=== PATIENT | female | born 1970 ===

== ENCOUNTER 2020-03-15 11:55 | Outpatient (REF) | payer MEDICAID, SELFPAY | END 2020-03-15 11:56 | disposition home or self-care (01) | LOC: HO.LAB 11:55 | PROVIDERS: PCP Internal Medicine Geriatric Medicine; Visit Provider Internal Medicine | DX: Z20.828 Contact with and (suspected) exposure to other viral communicable diseases (principal) | CPT/HCPCS: 87635 ==

== ENCOUNTER → 2020-03-16 14:19 | Outpatient (REF) | payer MEDICAID, SELFPAY | LOC: HO.SL 14:19 | PROVIDERS: PCP Internal Medicine Geriatric Medicine; Visit Provider Internal Medicine Geriatric Medicine | DX: R06.00 Dyspnea, unspecified (principal); R06.83 Snoring; R40.0 Somnolence | CPT/HCPCS: 95806 ==

== ENCOUNTER → 2020-04-10 11:02 | Outpatient (BNVA) | payer MEDICAID, SELFPAY | PROVIDERS: PCP Internal Medicine Geriatric Medicine; Referring Provider Internal Medicine Geriatric Medicine; Visit Provider Internal Medicine Cardiovascular Disease | DX: R07.89 Other chest pain (principal); I25.10 Atherosclerotic heart disease of native coronary artery without angina pectoris; I10 Essential (primary) hypertension; Z79.899 Other long term (current) drug therapy; Z95.5 Presence of coronary angioplasty implant and graft | CPT/HCPCS: 93005; 99202 ==

== ENCOUNTER → 2020-05-16 08:27 | Outpatient (REF) | payer MEDICAID, SELFPAY ==
--- NOTE | 2020-05-16 08:30 | CA_ITS ---
Acquisition Time: 2020-05-16 09:39:33 Total Exercise Time: 00:05:34 Test Indications: Chest Pain Medications: METOPROLOL LISINOPRIL Protocol: AMY Max HR: 146 BPM 85% of Pred: 170 BPM Max BP: 164/100 mmHG Max Work Load: 5.0 METS Exercise nuclear stress test using amy protocol. Second stage held. Incline increased manually. Pt exercised for total of 5 min 34 sec. METS 5.0, with MAPHR up to 85 %. Pt tolerated well. Denies any anginal sx. EKG without any arrhythmias, no ischemic changes suggestive of ischemia. Nuclear images to follow. Normotensive response to exercise. Test reviewed with Dr. Allen. Referred By: Carlos Grimes Overread By: Cristiane Byrnes
--- NOTE | 2020-05-16 08:37 | NM_ITS ---
Exercise Myocardial perfusion study Indication: Atherosclerotic heart disease to evaluate for myocardial ischemia Technique: The patient was brought in for an exercise perfusion study on 05/16/2020. Patient performed exercise as per Abiodun protocol and was injected 40 mCi of sestamibi was given intravenously one target HR was achieved. Images were obtained using the SPECT gamma camera interlaced with the gating device. Images were obtained in supine position. Resting perfusion study was performed on 05/17/2020. Patient was administered 40 mCi of sestamibi intravenously at rest. Images were then obtained in supine position. Images obtained with and without CT attenuation. Total DLP 128 mGy-cm. Images were processed with the software and compared side to side in short axis, horizontal long axis and vertical long axis views. Findings: The stress perfusion study showed non attenuated images show mildly reduced uptake in the basal septum and basal inferior wall of the LV myocardium. Remainder of the LV myocardium is normally perfused. Attenuation corrected images show mildly reduced uptake in the distal septum and apex of the LV myocardium.. The gated study shows normal LV systolic function with calculated LVEF of 58%. LV cavity is normal in size. The gated study shows normal systolic wall thickening and contraction of all segments. There is no transient ischemic dilation. Resting study shows no change in perfusion pattern compared to stress perfusion study. Gating at rest reveals normal systolic wall motion with ejection fraction at 63%. The findings are consistent with normal myocardial perfusion. NM/NM cardiolite stress test Impression: 1. Normal myocardial perfusion 2. Gated LVEF is 58% 3. Transient ischemic dilatation not present Stress EKG is negative for ischemia
== END ==
LOC: HO.CARD 08:27
PROVIDERS: Visit Provider Internal Medicine Cardiovascular Disease
DX: R07.89 Other chest pain (principal); I25.10 Atherosclerotic heart disease of native coronary artery without angina pectoris; Z95.5 Presence of coronary angioplasty implant and graft
CPT/HCPCS: 78452; 93017; A9500

== ENCOUNTER 2020-05-24 19:49 | Emergency (ER) | payer MEDICAID, SELFPAY ==
[2020-05-24 21:50] VITALS: BP 162/86; PULSE 83; RESP 16; TEMP 36.4; O2SAT 97; BMI 36.2
--- NOTE | 2020-05-24 22:56 | ECG_ITS ---
Test Reason : LOC Blood Pressure : / mmHG Vent. Rate : 072 BPM Atrial Rate : 072 BPM P-R Int : 164 ms QRS Dur : 092 ms QT Int : 412 ms P-R-T Axes : 030 007 030 degrees QTc Int : 451 ms Normal sinus rhythm Normal ECG When compared with ECG of 22-JUN-2017 19:04, No significant change was found Referred By: Aislinn Roper Electronically Signed By:Dave Sánchez
--- NOTE | 2020-05-24 22:56 | CT_ITS ---
EXAMINATION: CT HEAD WITHOUT CONTRAST CT CERVICAL SPINE WITHOUT CONTRAST CLINICAL INFORMATION: Fall. Loss of consciousness. COMPARISON: CT head 06/22/2017 TECHNIQUE: Imaging was performed from the skull base to vertex without intravenous administration of contrast. In addition, helical noncontrast CT imaging was acquired through the cervical spine and source images were reviewed along with axial reconstructions and sagittal and coronal MPRs. Coronal and sagittal reformatted images are performed at the CT scanner [This CT examination was performed using dose optimization techniques as appropriate, variously including the following: *Automated exposure control *Adjustment of mA and/or kV according to patient size (this includes techniques or standardized protocols for targeted exams where dose is matched to indication/reason for exam; i.e. extremities or head) *Use of iterative reconstruction technique] DLP: 1427 mGy-cm FINDINGS: HEAD: No intracranial mass, hemorrhage, or midline shift is visualized. The ventricles and sulci are age-appropriate. No extra-axial collections are identified. The paranasal sinuses and mastoid air cells are well aerated. CERVICAL SPINE: There is no evidence of acute cervical spine fracture. Vertebral bodies remain normal in height. Cervical vertebrae have normal alignment. There is mild multilevel degenerative spondylosis of the cervical spine. There are small vertebral endplates spurs at C4-C7 vertebrae. Cervical spine disc heights and the facet joints are normal. No pre- or paravertebral soft tissue abnormality is identified. Limited assessment of the lung apices is unremarkable. CT/CT cervical spine wo con IMPRESSION: 1. No acute intracranial pathology. 2. No CT evidence of acute cervical spine fracture or traumatic subluxation
--- NOTE | 2020-05-24 23:07 | ED_ITS ---
HPI - Fall General Chief Complaint: Head Injury Stated Complaint: fall Time Seen by Provider: 05/24/20 22:55 Source: patient Mode of arrival: ambulatory History of Present Illness HPI Narrative: This is a 49-year-old female with significant past medical history of hypertension, CAD, diabetes who states that at approximately 7:00 p.m. this evening she was walking in the kitchen stubbed her toe causing her to fall forward and despite landing with her hands on the counter she struck her head on the edge of the sink and states that she ?passed out?. But shortly woke up sitting on the floor with her back against the counter. She denies any recent fevers, chills, GI symptoms, or urinary symptoms. Related Data Home Medications Medication Instructions Recorded Confirmed lisinopril 30 mg tablet 30 mg PO DAILY 04/10/20 04/10/20 metoprolol succinate 50 mg 50 mg PO DAILY 04/10/20 04/10/20 tablet,extended release 24 hr Previous Rx's Medication Instructions Recorded aspirin 81 mg tablet,delayed 81 mg PO DAILY #30 tab 04/10/20 release atorvastatin 40 mg tablet 40 mg PO DAILY #30 tab 04/10/20 Allergies Allergy/AdvReac Type Severity Reaction Status Date / Time SEASONAL ALLERGIES Allergy Unknown UNKNOWN Uncoded 04/12/20 15:28 Review of Systems Review of Systems: Pertinent positive and negatives as stated in HPI and 10 point review of systems is otherwise negative. [facility] Past Medical History Source: nursing notes reviewed Medical History CAD (coronary artery disease) Diabetes HTN (hypertension) Hyperlipidemia Surgical History History of heart artery stent Stented coronary artery Family History Family History Father No problems noted. Mother Diabetes Hypertension Social History Social History Smoking Status: Never smoker Advance Directives: No Advance Directives Information Provided: No Physical Exam Vital Signs: Vital Signs: Last Vital Signs Temp 97.9 F 05/25/20 00:00 Pulse 71 05/25/20 00:00 Resp 18 05/25/20 00:00 BP 132/71 05/25/20 00:00 Pulse Ox 98 05/25/20 00:00 Body Mass Index 36.2 VITAL SIGNS: Reviewed. GENERAL: Well developed, well nourished, in no acute distress. HEAD: Normocephalic/contusion to left forehead without abrasion or laceration EYES: PERRLA, EOMI intact without pain NOSE: Nares patent bilateral OROPHARYNX: no oral lesions noted, posterior pharynx clear NECK: Supple, no adenopathy, mild right paraspinal discomfort on palpation LUNGS: Normal breath sounds. No adventitious sounds or accessory muscle use. SpO2<97> CARDIOVASCULAR: Regular rate and rhythm without noted murmurs, no JVD or lower extremity edema. ABDOMEN: Obese, Soft, non-tender, non-distended with bowel sounds. No rigidity. No guarding. No palpable masses or hernias noted RIGHT GREAT TOE: No erythema, laceration, edema, but mild discomfort on full range of motion at the MTP NEUROLOGIC: Alert and oriented x 4. Strength and sensation to light touch were grossly intact x 4, no pronator drift, cranial nerves 2-12 are grossly intact. Course Course Course Narrative: This is a 49-year-old female with history and clinical presentation most consistent with mechanical fall but will evaluate for any evidence of arrhythmia, infection, anemia given patient's multiple comorbidities as well as reported LOC. On review of all investigations there are no acute findings to suggest infection, anemia, arrhythmia and history is most consistent with a mechanical fall. All results and findings were discussed with the patient at bedside and she was discharged in stable condition with instructions to follow-up with her primary care provider. MDM - Fall Lab Data Result diagrams: 05/25/20 00:13 05/25/20 00:13 Labs: Lab Results 05/25/20 05/25/20 05/25/20 Range/Units 00:11 00:13 00:13 WBC 11.0 H (4.8-10.8) X10*3/uL RBC 4.83 (4.20-5.50) X10*6/uL Hgb 12.0 (12.0-16.0) g/dl Hct 38.9 (37-47) % MCV 80.5 (80-98) fL MCH 24.8 L (27.0-33.0) pg MCHC 30.8 L (31.0-35.0) g/dl RDW 14.7 (11.0-16.0) % Plt Count 363 (160-400) X10*3/uL MPV 10.2 (9.4-12.3) fL Immature Gran % (Auto) 0.5 H (0.0-0.4) % Neut % (Auto) 62.9 (45-73) % Lymph % (Auto) 27.2 (20-40) % [place] % (Auto) 6.3 (2-11) % Eos % (Auto) 2.6 (0-4) % Baso % (Auto) 0.5 (0-2) % Lymph # (Auto) 3.0 (1.2-4.9) X10*3/uL [place] # (Auto) 0.7 (0.1-1.2) X10*3/uL Eos # (Auto) 0.3 (0.0-0.4) X10*3/uL Baso # (Auto) 0.1 (0.0-0.2) X10*3/uL Abs Immat Gran (auto) 0.05 H (0.00-0.03) X10*3/uL Absolute Neuts (auto) 7.0 (2.0-8.3) X10*3/uL Absolute Nucleated RBC 0.000 (0.0-0.012) X10*3/uL Nucleated RBC % (auto) 0.0 (0.0-0.2) /100WBC Sodium 140 (135-145) mmol/L Potassium 4.1 (3.3-5.1) mmol/l Chloride 104 (96-108) mmol/L Carbon Dioxide 29 (22-29) mmol/L Anion Gap 11 L (12-20) BUN 12 (9-16) mg/dL Creatinine 0.95 (0.5-1.4) mg/dL Estim Creat Clear Calc 82.5 Estimated GFR > 60 Random Glucose 176 H (60-115) mg/dL Calcium 8.9 (8.4-10.2) mg/dL Total Bilirubin 0.4 (0.0-1.0) mg/dL AST 25 (5-31) U/L ALT 30 (0-31) U/L Alkaline Phosphatase 107 (39-117) U/L Total Protein 7.2 (6.5-8.0) g/dL Albumin 3.9 (3.5-5.0) g/dL Urine Color YELLOW Urine Appearance CLEAR Urine pH 7.0 (5.0-8.0) Ur Specific [place] 1.020 (1.005-1.025) Urine Protein NEG (NEG-TRACE) MG/DL Urine Glucose (UA) NEG (NEG) MG/DL Urine Ketones NEG (NEG) MG/DL Urine Blood NEG (NEG) Urine Nitrite NEG (NEG) Ur Leukocyte Esterase NEG (NEG) Discharge Plan Discharge Clinical Impression: Accident due to mechanical fall without injury Qualifiers: Encounter type: initial encounter Qualified Code(s): W19.XXXA - Unspecified fall, initial encounter Patient Disposition: Home, Self-Care Instructions: Fall Prevention for Older Adults (ED) Additional Instructions: 1. Resume all home medications as prescribed. 2. Recommend using neti-zen-palfbaf Tylenol and/or ibuprofen as needed for headache and pain control. 3. Apply ice to unexposed skin for 5-10 minutes as needed for additional pain relief. 4. Please do not hesitate to return to the emergency department if you notice any concerning symptoms such as speech changes, or arm/leg weakness. Please follow-up with your primary care provider. Prescriptions: No Action metoprolol succinate 50 mg tablet extended release 24 hr 50 mg PO DAILY RF: 0 lisinopril 30 mg tablet 30 mg PO DAILY RF: 0 aspirin [Ecotrin Low Strength] 81 mg tablet,delayed release (DR/EC) 81 mg PO DAILY Qty: 30 RF: 0 atorvastatin 40 mg tablet 40 mg PO DAILY Qty: 30 RF: 0 Referrals: [facility] [Primary Care Provider] - 2 days (Re-evaluation after mechanical fall resulting in head strike and LOC and negative workup in the emergency department.)
[2020-05-25] VITALS: BP 132/71; PULSE 71; RESP 18; TEMP 36.6; O2SAT 98
[2020-05-25 00:19] LABS: MANUAL DIFF FLAG NO
[2020-05-25 00:19] LABS: Glucose Urine UA NEG (NEG); Leukocyte Esterase Urine NEG (NEG); Nitrite Urine NEG (NEG); Urine Blood NEG (NEG); Urine Ketones NEG (NEG); Urine Protein NEG (NEG-TRACE)
[2020-05-25 00:20] LABS: Basophils Absolute Auto 0.1 X10*3/uL (0.0-0.2); Basophils Percent Auto 0.5 % (0-2); Eosinophils Absolute Auto 0.3 X10*3/uL (0.0-0.4); Eosinophils Percent Auto 2.6 % (0-4); Hematocrit 38.9 % (37-47); Imm Gran Abs Auto 0.05 X10*3/uL (0.00-0.03); Imm Gran Pct Auto 0.5 % (0.0-0.4); Lymphocytes Percent Auto 27.2 % (20-40); Mean Corpuscular HGB Conc 30.8 g/dl (31.0-35.0); Mean Corpuscular Hemoglobin 24.8 pg (27.0-33.0); Mean Corpuscular Volume 80.5 fL (80-98); Mean Platelet Volume 10.2 fL (9.4-12.3); Monocytes Absolute Auto 0.7 X10*3/uL (0.1-1.2); Monocytes Percent Auto 6.3 % (2-11); Neutrophils Percent Auto 62.9 % (45-73); Platelet Count 363 X10*3/uL (160-400); Red Blood Count 4.83 X10*6/uL (4.20-5.50); Red Cell Distribution Width 14.7 % (11.0-16.0)
[2020-05-25 00:21] LABS: Appearance Urine CLEAR; Color Urine YELLOW; UACC Culture Trigger NO
[2020-05-25 00:57] LABS: Alanine Aminotransferase 30 U/L (0-31); Albumin Level 3.9 g/dL (3.5-5.0); Alkaline Phosphatase 107 U/L (39-117); Anion Gap 11 (12-20); Aspartate Amino Transferase 25 U/L (5-31); Bilirubin Total 0.4 mg/dL (0.0-1.0); Blood Urea Nitrogen 12 mg/dL (9-16); Calcium 8.9 mg/dL (8.4-10.2); Carbon Dioxide 29 mmol/L (22-29); Chloride 104 mmol/L (96-108); Creatinine Clr Calc Pharmacy 82.5; Estimated Glomerular Filt Rate > 60; Glucose Random 176 mg/dL (60-115); Potassium 4.1 mmol/l (3.3-5.1); Sodium 140 mmol/L (135-145); Total Protein 7.2 g/dL (6.5-8.0)
[2020-05-25] MEDS: Acetaminophen 325 MG TABLET 975 MG PO (01:57)
== END 2020-05-25 02:17 | disposition home or self-care (01) ==
PROVIDERS: Emergency Provider Student in an Organized Health Care Education/Training Program
DX: S09.90XA Unspecified injury of head, initial encounter (principal); S99.922A Unspecified injury of left foot, initial encounter; S99.921A Unspecified injury of right foot, initial encounter; M54.2 Cervicalgia; Y29.XXXA Contact with blunt object, undetermined intent, initial encounter; Y93.01 Activity, walking, marching and hiking; Y92.000 Kitchen of unspecified non-institutional (private) residence as the place of occurrence of the external cause; Y99.9 Unspecified external cause status; Z79.899 Other long term (current) drug therapy
CPT/HCPCS: 36415; 70450; 72125; 80053; 81003; 85025; 93005; 99284

== ENCOUNTER → 2020-05-29 13:18 | Outpatient (BNVA) | payer MEDICAID, SELFPAY | PROVIDERS: PCP Internal Medicine Geriatric Medicine; Referring Provider Internal Medicine Geriatric Medicine; Visit Provider Internal Medicine Cardiovascular Disease | DX: I25.10 Atherosclerotic heart disease of native coronary artery without angina pectoris (principal); R07.89 Other chest pain | CPT/HCPCS: 99212 ==

== ENCOUNTER 2020-12-15 10:09 | Outpatient (REF) | payer MEDICAID, SELFPAY ==
--- NOTE | 2020-12-18 09:18 | MHC.AU.ANO ---
Adult Audiological Evaluation Date of Visit: 12/15/20 Reason for Appointment: Patient reports difficulty understanding others during conversation. She reports that the use of masks over the past year has made her realize how much she relied on lip reading. She feels the left ear is worse. Does patient feel they have a hearing loss?: Yes Has hearing been tested previously?: No Hearing Handicap Inventory: HHIE SCORE: 10 Based on HHIE score, patient has: Mild to moderate perceived hearing handicap Ear History: Ear Deformity: None Reported Recent Ear Drainage: None Reported Recent Ear Infections: None Reported History of Ear Wax Buildup: None Reported Previous Ear Surgery: None Reported Bothersome Tinnitus/Ringing/Noises in Ears: Both Ears Ear used on the phone: Left Ear Blocked/Full Sensation in Ear(s): None Reported History of occupational noise exposure?: No History: No Medical History: Medical History: Diabetes, Heart Problems, High Blood Pressure, Asthma Otoscopy: Right Ear: Unremarkable Left Ear: Unremarkable Tympanometry: Tympanometry performed due to: To assess integrity of the middle ear system Right Ear: Normal Middle Ear System (Type A) Left Ear: Hypercompliant Middle Ear System (Type Ad) Otoacoustic Emissions Frequency Range Used: 1.6-8 kHz Right Ear Results: Normal 1313-1226 Hz, Reduced 6827-8746 Hz, Absent 8160-8814 Hz Analysis: Reduced/Absent emissions suggest cochlear dysfunction Left Ear Results: Normal 6792-8884 Hz, Reduced/Absent 4978-1474 Hz Analysis: Reduced/Absent emissions suggest cochlear dysfunction Hearing Evaluation: Transducer(s) Used: Insert Earphones Method: Conventional Audiometry Stimuli Used: Pure Tones Right Ear: Description of Hearing: Normal from 250-1000 Hz, sloping to mild mixed hearing loss at 3013-1620 Hz, rising to normal through 8000 Hz Left Ear: Description of Hearing: Borderline-normal from 250-1500 Hz, sloping to mild mixed hearing loss from 4431-8604 Hz, rising to borderline-normal at 8000 Hz Speech Recognition Threshold (SRT): Method Used: Recorded Lists Stimuli Used: [place] Words Right Ear: 20 dBHL Left Ear: 25 dBHL Word Discrimination: Method: Recorded Lists Word Lists Used: W-22 Right Ear: 100% at 65 dBHL Left Ear: 100% at 65 dBHL Most Comfortable Level (MCL): Right Ear: 65 dBHL Left Ear: 65 dBHL Interpretation of Results: Asymmetry noted- left ear slightly worse at most frequencies Recommendations: Audiological re-evaluation in one year. Amplification is not warranted at this time. Referral to Ear, Nose, and Throat is recommended to address hearing asymmetry and hypercompliant left middle ear system. Diagnosis: Primary Diagnosis: H90.6 Mixed Hearing Loss, Bilateral Signature: Provider: Daenna Espinoza, SUKH-A
== END 2020-12-15 10:10 | disposition home or self-care (01) ==
LOC: HO.SH 10:09
PROVIDERS: Visit Provider Internal Medicine Geriatric Medicine
DX: H90.6 Mixed conductive and sensorineural hearing loss, bilateral (principal)
CPT/HCPCS: 92557; 92567; 92587

== ENCOUNTER 2021-10-09 14:48 | Outpatient (REF) | payer MEDICAID, SELFPAY ==
--- NOTE | ~2021-10-09 | MM_ITS ---
EXAMINATION: MM SCREENING DIGITAL BREAST TOMOSYNTHESIS, BILATERAL CLINICAL INFORMATION: Screening. Asymptomatic. The lifetime risk of breast cancer based on the Tyrer-Cuzick Model is 7%. COMPARISON: Mammography: 10/20/2015 TECHNIQUE: Digital breast tomosynthesis is performed in both the craniocaudal and mediolateral oblique views along with computer-aided detection (CAD). Synthesized 2D images are generated from the tomosynthesis. FINDINGS: There are scattered areas of fibroglandular density (ACR BI-RADS breast composition Category b). There are no significant masses, abnormal calcifications, or other abnormalities. Parenchymal pattern is similar to prior exam. The axilla are unremarkable. MM/MM tomosynthesis screening BI IMPRESSION: No mammographic evidence of malignancy. ASSESSMENT: BI-RADS 1: Negative RECOMMENDATION: Routine annual mammography screening. This patient's information was entered into a reminder system with a target due date for their next mammogram.
== END 2021-10-09 14:49 | disposition home or self-care (01) ==
LOC: HO.MAMMO 14:48
PROVIDERS: PCP Internal Medicine Geriatric Medicine; Visit Provider Internal Medicine Geriatric Medicine
DX: Z12.31 Encounter for screening mammogram for malignant neoplasm of breast (principal)
CPT/HCPCS: 77063; 77067

== ENCOUNTER 2022-07-01 07:06 | Emergency (ER) | payer MEDICAID, SELFPAY ==
[2022-07-01 07:11] VITALS: BP 135/78; PULSE 68; RESP 18; TEMP 36.5; O2SAT 97; BMI 36.8
--- NOTE | 2022-07-01 07:23 | ED.BACK ---
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 No trauma. started 4 days ago worse over past two days. No b/b incontinence, no saddle anesthesia, no IVDA. Tried a pain patch without relief. Patient notes pain is worse with movements and coughing. She has pain before but usually on left side. No fevers, abdominal pain, urinary symptoms. MD elicited complaint: back pain Pertinent past history: prior back pain Onset (ago): day(s) (4) Timing: constant Severity: moderate Similar Symptoms Previously: No Quality: dull, aching and spasming Location: lumbar spine Radiation: other (across back) Exacerbating factors: movement and walking Relieving factors: none Associated symptoms: denies other symptoms Treatments prior to arrival: other (pain patch) Work related injury: No Related Data Home Medications Medication Instructions Recorded Confirmed lisinopril 30 mg tablet 30 mg PO DAILY 04/10/20 04/10/20 metoprolol succinate 50 mg 50 mg PO DAILY 04/10/20 04/10/20 tablet,extended release 24 hr Previous Rx's Medication Instructions Recorded aspirin 81 mg tablet,delayed 81 mg PO DAILY #30 tabs 04/10/20 release (Ecotrin Low Strength) atorvastatin 40 mg tablet 40 mg PO DAILY #30 tabs 04/10/20 diazepam 5 mg tablet (Valium) 5 mg PO TID PRN muscle spasm #10 07/01/22 tabs lidocaine 5 % topical patch 1 patch topical DAILY #30 ea 07/01/22 Allergies Allergy/AdvReac Type Severity Reaction Status Date / Time SEASONAL ALLERGIES Allergy Unknown UNKNOWN Uncoded 07/01/22 07:19 Review of Systems Review of Systems: Constitutional : No Weight loss, No Fever, No Chills, ENT/Mouth : No Hearing loss, No Ear Pain, No Nasal Congestion, No Sinus Pain, No Hoarseness, No sore throat, No Rhinorrhea, No Swallowing Difficulty Cardiovascular : No Chest Pain, No SOB Respiratory : No Cough, No Dyspnea Gastrointestinal : No Nausea, No Vomiting, No Diarrhea, No abdominal Pain, No Hematochezia, No Melena Genitourinary : No Dysuria, No Urinary Frequency, No Hematuria, No Urinary Incontinence, Musculoskeletal : positive back pain Skin : No Skin Lesions, No rash Neuro : No Weakness, No Numbness, No Paresthesias, no loss of bowel or bladder incontinence, no saddle anesthesia [facility] Past Medical History Attestation statement: The following information was validated with the patient. Medical History CAD (coronary artery disease) Diabetes HTN (hypertension) Hyperlipidemia Surgical History History of heart artery stent Stented coronary artery Family History Family History Father No problems noted. Mother Diabetes Hypertension Social History Social History Alcohol intake: never Smoked in Last 30 Days: No Use of substances other than those prescribed or required for medical reasons: No Advance Directives: No Advance Directives Information Provided: Yes Patient : No Physical Exam Vital Signs: Vital Signs: Last Vital Signs Temp 97.7 F 07/01/22 07:11 Pulse 68 07/01/22 07:11 Resp 18 07/01/22 07:11 BP 135/78 07/01/22 07:11 Pulse Ox 97 07/01/22 07:11 O2 Del Method 07/01/22 07:11 BMI result Body Mass Index 36.8 Appearance: Alert. Oriented X3. No acute distress. Eyes: Pupils equal, round and reactive to light. ENT: Pharynx normal. Neck: Normal inspection. Neck supple. CVS: Normal heart rate and rhythm. Pulses normal. Respiratory: No respiratory distress. Breath sounds normal. Abdomen: Soft and nontender. Back: ttp along R paraspinal lumbar area that reproduces pain, hurts move up and down in bed Skin: Skin warm and dry. Normal skin color. Normal skin turgor. Extremities: No lower extremity edema. No calf ttp Neuro: Oriented X 3. No motor deficit. No sensory deficit. SILT inner thigh, L5 5/5 bilaterally, 2+ DTRs in patella bilaterally Medical Decision Making Medical Decision Making MDM Narrative: 51 yo female with PMH of CAD, DM, HTN, HLD not on blood thinners here with low back pain without b/b incontinence/saddle anesthesia. Pain is reproduceable. She is NV intact, pain is there on palpation and movement likely MSK - no red flags abdomen is benign at this time. Suspect lumbar spasm will treat with tylenol and valium. Stable for DC at this time. No IVDA, fevers, belly pain, urinary symptoms. Differential Diagnosis Differential Diagnoses: The differential diagnosis associated with the presentation includes lumbar strain, disc herniation, Independent Historian Clinical information obtained from an independent historian. History obtained from or confirmed by: Spouse External Record Review External record reviewed: Office record Prescription Management I considered prescription management with: Other (valium - muscle relaxer) Discharge Plan Discharge Clinical Impression: Lumbar paraspinal muscle spasm Patient Disposition: Home, Self-Care Instructions: Muscle Spasm (ED), Back Pain (ED) Additional Instructions: return to ED for any worsening symptoms or concerns return for numbness, weakness, loss of control of bowel or bladder, if pain does not improve in 3 days talk to your doctor about physical therapy. you can apply ice or heat to the area for comfort as well. take tylenol 650mg every 6 hours for pain do not exceed more than 4 grams in a day limit lifting to 10lbs for 2 weeks Prescriptions: New lidocaine 5 % adhesive patch,medicated 1 patch topical DAILY Qty: 30 0RF Rx Instructions: leave on most painful area for up to 12 hrs diazepam [Valium] 5 mg tablet 5 mg PO TID PRN (Reason: muscle spasm) Qty: 10 0RF Rx Instructions: partial fill is okay No Action metoprolol succinate 50 mg tablet extended release 24 hr 50 mg PO DAILY lisinopril 30 mg tablet 30 mg PO DAILY aspirin [Ecotrin Low Strength] 81 mg tablet,delayed release (DR/EC) 81 mg PO DAILY Qty: 30 0RF atorvastatin 40 mg tablet 40 mg PO DAILY Qty: 30 0RF Referrals: Rashad De La Cruz MD [Primary Care Provider] - (follow up in 3 days if not better)
[2022-07-01 07:37] LABS: Appearance Urine Clear; Color Urine Yellow; Glucose Urine UA >=1000 mg/dL (Negative); Leukocyte Esterase Urine Negative (Negative); Nitrite Urine Negative (Negative); PH 5.5 (5.0-9.0); Specific Gravity - Urine >= 1.030 (1.005-1.025); UMIC TRIGGER UACC YES; Urine Blood Negative (Negative); Urine Ketones Negative (Negative); Urine Protein Negative (Neg-Trace)
[2022-07-01] MEDS: Acetaminophen 325 MG TABLET 650 MG PO (07:56)
[2022-07-01] MEDS: diazePAM 2 MG TABLET 5 MG PO (07:56)
[2022-07-01 08:40] LABS: Bacteria Urine None Seen (None Seen); Hyaline Casts Urine 0-2 /LPF (0-2); RBC Urine 0-2 /HPF (0-2); Squamous Epithelial Cell Urine 0-2 /HPF (0-2); WBC Urine 0-5 /HPF (0-5)
== END 2022-07-01 08:07 | disposition home or self-care (01) ==
PROVIDERS: Emergency Provider Emergency Medicine; PCP Internal Medicine Geriatric Medicine
DX: M62.830 Muscle spasm of back (principal); M54.50 Low back pain, unspecified; E11.9 Type 2 diabetes mellitus without complications; I10 Essential (primary) hypertension; E78.5 Hyperlipidemia, unspecified; Z79.899 Other long term (current) drug therapy; Z79.02 Long term (current) use of antithrombotics/antiplatelets
CPT/HCPCS: 81001; 99283; 99284

== ENCOUNTER 2022-07-23 15:00 | Outpatient (RCR) | payer MEDICAID, SELFPAY ==
[2022-06-24 15:01] VITALS: BP 168/93; PULSE 84
== END 2022-08-13 14:23 | disposition home or self-care (01) ==
LOC: HO.PT 15:00
PROVIDERS: PCP Internal Medicine Geriatric Medicine; Visit Provider Registered Nurse
DX: M25.511 Pain in right shoulder (principal)
CPT/HCPCS: 97110; 97140; 97161

== ENCOUNTER 2022-11-29 17:52 | Outpatient (REF) | payer MEDICAID, SELFPAY | END 2022-11-29 17:53 | disposition home or self-care (01) | LOC: HO.HHCLNP 17:52 | PROVIDERS: Visit Provider Emergency Medicine | DX: Z13.89 Encounter for screening for other disorder (principal) | CPT/HCPCS: 87480; 87510; 87660 ==

== ENCOUNTER 2022-12-10 17:57 | Outpatient (REF) | payer OTHER, SELFPAY ==
[2022-12-11 11:32] LABS: CT PCR NOT DETECTED (Not Detect.); NG PCR NOT DETECTED (Not Detect.)
[2022-12-11 14:54] LABS: BV Int Neg Control Negative (Negative); BV Int Pos Control Positive (Positive)
== END 2022-12-10 17:58 | disposition home or self-care (01) ==
LOC: HO.HHCLNP 17:57
PROVIDERS: Visit Provider Registered Nurse
DX: N89.8 Other specified noninflammatory disorders of vagina (principal)
CPT/HCPCS: 0353U; 87480; 87510; 87660

== ENCOUNTER 2023-09-09 09:15 | Outpatient (REF) | payer SELFPAY ==
[2023-09-09 12:07] LABS: Estimated Average Glucose 309 mg/dL; Hemoglobin A1c % 12.4 % (<6.0)
[2023-09-09 12:16] LABS: Creatinine Urine 129.79 mg/dL; Microalbum/Creatinine Ratio Ur 20.8 ug/mg cr (<30)
[2023-09-09 12:41] LABS: Alanine Aminotransferase 26 U/L (0-31); Albumin Level 3.9 g/dL (3.5-5.0); Alkaline Phosphatase 140 U/L (39-117); Anion Gap 10 (12-20); Aspartate Amino Transferase 23 U/L (5-31); Bilirubin Total 0.4 mg/dL (0.0-1.0); Blood Urea Nitrogen 9 mg/dL (9-16); Calcium 9.3 mg/dL (8.4-10.2); Carbon Dioxide 29 mmol/L (22-29); Chloride 103 mmol/L (96-108); Cholesterol 207 mg/dL (<200); Estimated Glomerular Filt Rate > 60; Glucose Random 287 mg/dL (60-115); HDL Cholesterol 44 mg/dL (>40); LDL Cholesterol Calculated 136 mg/dL (<100); Potassium 3.8 mmol/L (3.3-5.1); Sodium 138 mmol/L (135-145); Total Protein 7.8 g/dL (6.5-8.0); Triglycerides 139 mg/dL (<150)
== END 2023-09-09 09:16 | disposition home or self-care (01) ==
LOC: HO.HHCL 09:15
PROVIDERS: Visit Provider Internal Medicine Geriatric Medicine
DX: E11.65 Type 2 diabetes mellitus with hyperglycemia (principal); R73.09 Other abnormal glucose; F40.298 Other specified phobia
CPT/HCPCS: 36415; 80053; 80061; 82043; 82570; 83036

== ENCOUNTER 2023-09-11 18:34 | Outpatient (REF) | payer SELFPAY ==
[2023-09-14 13:29] LABS: C. trachomatis RNA TMA NOT DETECTED (NOT DETECTED); Candida glabrata RNA NOT DETECTED (NOT DETECTED); Candida species RNA DETECTED (NOT DETECTED); N. gonorrhoeae RNA TMA NOT DETECTED (NOT DETECTED); Trichomonas vaginalis RNA NOT DETECTED (NOT DETECTED)
== END 2023-09-11 18:35 | disposition home or self-care (01) ==
LOC: HO.HHCLNP 18:34
PROVIDERS: Visit Provider Pediatrics
DX: N76.0 Acute vaginitis (principal)
CPT/HCPCS: 36415; 81513; 87481; 87491; 87591; 87661

== ENCOUNTER 2023-12-02 09:29 | Outpatient (REF) | payer OTHER, SELFPAY ==
--- NOTE | 2023-12-02 09:32 | EMG_ITS ---
Bilateral tibial and peroneal motor studies were performed bilateral superficial peroneal, sural, median, and lateral plantar mixed sensory studies were performed. Tibial H reflexes were obtained, and paraspinal muscles were tested with a needle. 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 MD ALEXANDER Roberto/WESLEY / [phone]
== END 2023-12-02 09:30 | disposition home or self-care (01) ==
LOC: HO.NEURO 09:29
PROVIDERS: PCP Internal Medicine Geriatric Medicine; Visit Provider Internal Medicine Geriatric Medicine
DX: M79.604 Pain in right leg (principal); M79.605 Pain in left leg
CPT/HCPCS: 95886; 95913

== ENCOUNTER 2024-03-18 13:04 | Outpatient (AMB) | payer OTHER, SELFPAY ==
--- NOTE | 2024-03-18 13:13 | MHC.OFFVIS ---
Vital Signs 03/18/24 13:18 Height 5 ft 5 in Weight 215 lb BMI 35.8 BP 183/86 H Blood Pressure Location Lt brachial Position Sitting Pulse 87 Intake Visit Reasons: Abscess left breast Intake Note: Patient is seen in office for evaluation and treatment of an abscess of the left breast. Pt c/o:onset 2 wks ago, started to driain last night whitish discharge, lower part of the breast, antbx for the past week, redness, denies prior breast infections or concerns mm sched: 04/09/24 Court Supervisor Required: No Accompanied by: Self / Same As Patient Allergies SEASONAL ALLERGIES Allergy (Unknown, Uncoded 03/18/24 13:15) UNKNOWN Medication List - Last Reconciled 03/18/24 by Terence Mckenzie MD aspirin (Ecotrin Low Strength) 81 mg PO DAILY atorvastatin 40 mg PO DAILY lidocaine 5% 1 patch topical DAILY lisinopril 30 mg PO DAILY metoprolol succinate ER 50 mg PO DAILY HPI Comments Details: 53-year-old female patient presenting for evaluation of an abscess below the left breast which was 1st noted a least 2 weeks ago. Prior to the infection she did feel a nodule in the skin for several years which was asymptomatic. This gradually enlarged and then became infected 2-3 weeks ago. She was evaluated by her PMD and subsequently started on oral antibiotics (doxycycline). She reports the lesion began to drain yesterday for the 1st time. She reports that the lesion has decreased in size in his less painful today. She denies fever, chills, nausea or vomiting. He denies a previous history of breast problems or breast surgery. Family history is negative for breast cancer. Her last mammogram performed on 10/09/2021 revealed no mammographic evidence of malignancy (BI-RADS 1). She is scheduled for a follow-up mammogram on 04/09/2024. Her [facility] remaining lifetime risk of breast cancer was calculated at 7% at that time. [facility] Medical History Left breast abscess Diabetes Hyperlipidemia HTN (hypertension) CAD (coronary artery disease) Surgical History Stented coronary artery History of heart artery stent Family History Father No problems noted. Mother Diabetes Hypertension Social History Alcohol intake: never Female Reproductive History Menstrual Age of Menarche: 13 Age of menopause: 46 Total pregnancies: 5 Number of Living Children: 5 Review of Systems Const All systems reviewed & are unremarkable except as noted in HPI and below Physical Exam Vital Signs: Last Vital Signs Pulse 87 03/18/24 13:18 BP 183/86 H 03/18/24 13:18 BMI result Body Mass Index 35.8 Const General: cooperative and no acute distress Nutritional Appearance: well nourished Orientation/consciousness: patient oriented x3 Limitations: no limitations HEENT Head: Yes normocephalic and Yes atraumatic Ears: hearing grossly normal bilaterally Chest Other: Epidermal inclusion cyst abscess located in the midclavicular line below the inframammary crease of the left breast with an area of cellulitis measuring a proximally 3 cm in diameter. A central punctum is open and draining purulent fluid. This was cleansed and packed with quarter-inch Nu Gauze. Dry sterile dressings were then applied. Chest/axillae images: 1. Site of skin abscess left chest wall. Resp Effort & Inspection: normal respiratory effort, no audible wheezes, no cough and no respiratory distress Cardio Jugular venous distension: no JVD GI Inspection: Yes normal to inspection Skin Other: Warm, dry, no rash; see chest above-knee Neuro General: patient oriented x3 Extrem General: Yes no clubbing, cyanosis or edema Assessment & Plan Assessment & Plan (1) Left breast abscess: Code(s): N61.1 - Abscess of the breast and nipple Category: Medical Plan 53-year-old female patient presenting with a probable epidermal inclusion cyst of the left chest wall just below the breast in the midclavicular line. This spontaneously opened yesterday and is draining purulent fluid. The wound was packed with Nu Gauze and covered with dry sterile dressings. No incision and drainage is required at this time. I recommended she shower and change the dressings daily. She should continue the antibiotics until completed. I have asked her to return to the office in 1 week. Once the infection has settled an excision of the epidermal inclusion cyst would be advisable. Coding Level of Care Code New Pt Level 4 (00019) Diagnoses Left breast abscess N61.1
[2024-03-18 13:18] VITALS: BP 183/86; PULSE 87; BMI 35.8
== END 2024-03-18 13:30 | disposition home or self-care (01) ==
LOC: HO.HGS 13:04
PROVIDERS: PCP Internal Medicine Geriatric Medicine; Visit Provider Surgery
DX: N61.1 Abscess of the breast and nipple (principal)
CPT/HCPCS: 99204

== ENCOUNTER → 2024-03-18 13:04 | Outpatient (BNVA) | payer OTHER, SELFPAY | PROVIDERS: PCP Internal Medicine Geriatric Medicine; Visit Provider Surgery ==

== ENCOUNTER 2024-03-25 13:46 | Outpatient (AMB) | payer OTHER, SELFPAY ==
--- NOTE | 2024-03-25 13:48 | MHC.OFFVIS ---
Vital Signs 03/25/24 13:54 Height 5 ft 5 in Weight 216 lb BMI 35.9 BP 158/80 H Blood Pressure Location Lt brachial Position Sitting Pulse 73 Intake Visit Reasons: 1 wk follow up Abscess left breast Intake Note: Patient is seen in office for one week follow up visit, left breast abscess. Pt c/o: continued discharge, less than last visit, states is looking better Property [employer] Casualty Insurance Agent Required: No Sound Truck Operator: Sound Truck Operator Present Accompanied by: Self / Same As Patient Allergies SEASONAL ALLERGIES Allergy (Unknown, Uncoded 03/25/24 13:53) UNKNOWN Medication List - Last Reconciled 03/25/24 by Terence Mckenzie MD aspirin (Ecotrin Low Strength) 81 mg PO DAILY atorvastatin 40 mg PO DAILY lidocaine 5% 1 patch topical DAILY lisinopril 30 mg PO DAILY metoprolol succinate ER 50 mg PO DAILY HPI Comments Details: 53-year-old female patient returning for follow-up evaluation after developing an abscess below the left breast. She was previously evaluated 1 week ago and found to have an open draining wound. This was packed with Nu Gauze and the patient started on antibiotics. Prior to the infection she did feel a nodule in the skin for several years which was asymptomatic. This gradually enlarged and then became infected 3 weeks ago. She was evaluated by her PMD and subsequently started on oral antibiotics (doxycycline). She denies fever, chills, nausea or vomiting. She denies a previous history of breast problems or breast surgery. Family history is negative for breast cancer. Her last mammogram performed on 10/09/2021 revealed no mammographic evidence of malignancy (BI-RADS 1). She is scheduled for a follow-up mammogram on 04/09/2024. Her [facility] remaining lifetime risk of breast cancer was calculated at 7% at that time. Since her last visit she reports less pain associated with the lesion but she continues to no discharge. She feels it has gotten smaller as well. [facility] Medical History Left breast abscess Diabetes Hyperlipidemia HTN (hypertension) CAD (coronary artery disease) Surgical History Stented coronary artery History of heart artery stent Family History Father No problems noted. Mother Diabetes Hypertension Social History Alcohol intake: never Female Reproductive History Menstrual Age of Menarche: 13 Review of Systems Const All systems reviewed & are unremarkable except as noted in HPI and below Physical Exam Vital Signs: Last Vital Signs Pulse 73 03/25/24 13:54 BP 158/80 H 03/25/24 13:54 BMI result Body Mass Index 35.9 Const General: cooperative and no acute distress Nutritional Appearance: well nourished Orientation/consciousness: patient oriented x3 Limitations: no limitations HEENT Head: Yes normocephalic and Yes atraumatic Ears: hearing grossly normal bilaterally Chest Other: Epidermal inclusion cyst abscess located in the midclavicular line below the inframammary crease of the left breast with an area of cellulitis measuring a proximally 1.5 cm in diameter. A central punctum is still open and draining purulent fluid. Dry sterile dressings were then applied. Chest/axillae images: 1. Site of draining cyst. Resp Effort & Inspection: normal respiratory effort, no audible wheezes, no cough and no respiratory distress Cardio Jugular venous distension: no JVD GI Inspection: Yes normal to inspection Skin Other: Warm, dry, no rash; see chest above-knee Neuro General: patient oriented x3 Extrem General: Yes no clubbing, cyanosis or edema Assessment & Plan Assessment & Plan (1) Left breast abscess: Code(s): N61.1 - Abscess of the breast and nipple Category: Medical Plan 53-year-old female patient returning for wound week follow-up evaluation of an infected epidermal inclusion cyst of the left chest wall below the left breast in the midclavicular line. The lesion continues to be open and draining. Overall it appears improve by think she would benefit from a longer course of antibiotics. Once the redness has improved, I would recommend excision of the original cyst. Patient expressed understanding and agrees with the plan. She will follow-up in approximately 2 weeks. Medications: New doxycycline hyclate 100 mg PO BID 30 tabs 0RF Coding Level of Care Code Est Pt Level 3 (72632) Diagnoses Left breast abscess N61.1
[2024-03-25 13:54] VITALS: BP 158/80; PULSE 73; BMI 35.9
== END 2024-03-25 14:05 | disposition home or self-care (01) ==
PROVIDERS: PCP Internal Medicine Geriatric Medicine; Visit Provider Surgery
DX: N61.1 Abscess of the breast and nipple (principal)
CPT/HCPCS: 99213

== ENCOUNTER 2024-04-09 14:17 | Outpatient (REF) | payer OTHER, SELFPAY ==
--- NOTE | ~2024-04-09 | MM_ITS ---
EXAMINATION: MM SCREENING DIGITAL BREAST TOMOSYNTHESIS, BILATERAL CLINICAL INFORMATION: Screening. Asymptomatic. COMPARISON: Mammography: Comparison is made with available priors TECHNIQUE: Digital breast mammography with tomosynthesis is performed in both the craniocaudal and mediolateral oblique views along with computer-aided detection (CAD). FINDINGS: There are scattered areas of fibroglandular density (ACR BI-RADS breast composition Category b). There are no significant masses, abnormal calcifications, or other abnormalities. MM/MM tomosynthesis screening BI IMPRESSION: No mammographic evidence of malignancy. ASSESSMENT: BI-RADS BI-RADS 1 - Negative RECOMMENDATION: Routine annual mammography screening. 1 year F/U This examination should not preclude the clinical evaluation of a suspicious palpable abnormality. This patient's information was entered into a reminder system with a target due date for their next mammogram. Electronically signed by: Samantha Zurita DO 04/20/2024 02:21 PM ANDREW
== END 2024-04-09 14:18 | disposition home or self-care (01) ==
LOC: HO.MAMMO 14:17
PROVIDERS: PCP Internal Medicine Geriatric Medicine; Visit Provider Family Medicine
DX: Z12.31 Encounter for screening mammogram for malignant neoplasm of breast (principal)
CPT/HCPCS: 77063; 77067

== ENCOUNTER → 2024-04-09 14:30 | Outpatient (BNV) | payer OTHER, SELFPAY | PROVIDERS: PCP Internal Medicine Geriatric Medicine; Visit Provider Internal Medicine | DX: Z12.31 Encounter for screening mammogram for malignant neoplasm of breast (principal) | CPT/HCPCS: 77063; 77067 ==

== ENCOUNTER 2024-04-22 14:10 | Outpatient (AMB) | payer OTHER, SELFPAY ==
--- NOTE | 2024-04-22 14:17 | A.OFFVIS_ITS ---
Vital Signs 04/22/24 14:19 Height 5 ft 5 in Weight 211 lb 6 oz BMI 35.2 BP 190/100 H Blood Pressure Location Lt brachial Position Sitting Pulse 115 H Intake Visit Reasons: follow up abscess of the left breast Intake Note: Patient is seen in office for one month follow up visit, following abscess of the left breast. Pt c/o: had discharge first couple of days, and is currently looking well, has no concerns Freight Dispatcher Required: No Accompanied by: Self / Same As Patient Allergies SEASONAL ALLERGIES Allergy (Unknown, Uncoded 03/25/24 13:53) UNKNOWN HPI Comments Details: 53-year-old female returning for follow-up examination of a previously infected sebaceous cyst below the left breast. She currently feels well denies any further pain, redness or discharge. She feels much improved. [facility] Medical History Left breast abscess Diabetes Hyperlipidemia HTN (hypertension) CAD (coronary artery disease) Surgical History Stented coronary artery History of heart artery stent Family History Father No problems noted. Mother Diabetes Hypertension Social History Alcohol intake: never Female Reproductive History Menstrual Age of Menarche: 13 Physical Exam Const General: comfortable Nutritional Appearance: well nourished Orientation/consciousness: patient oriented x3 Chest Other: Previous drainage site is now well healed with no palpable cyst appreciated. No discharge could be expressed with light pressure. Lesion is nontender to palpation. Neuro General: patient oriented x3 Extrem Other: No edema Assessment & Plan Assessment & Plan (1) Left breast abscess: Code(s): N61.1 - Abscess of the breast and nipple Category: Medical Plan 53-year-old female patient status post spontaneous drainage of an abscess below the left breast now completely resolved. No palpable cyst remains in the wound is completely healed. I recommended observation at this time; she should call should the cyst return. Coding Level of Care Code Est Pt Level 3 (29057) Diagnoses Left breast abscess N61.1
[2024-04-22 14:19] VITALS: BP 190/100; PULSE 115; BMI 35.2
== END 2024-04-22 14:24 | disposition home or self-care (01) ==
PROVIDERS: PCP Internal Medicine Geriatric Medicine; Visit Provider Surgery
DX: N61.1 Abscess of the breast and nipple (principal)
CPT/HCPCS: 99213

== ENCOUNTER → 2024-04-22 14:10 | Outpatient (BNVA) | payer OTHER, SELFPAY | PROVIDERS: PCP Internal Medicine Geriatric Medicine; Visit Provider Surgery ==

== ENCOUNTER 2024-07-13 08:37 | Outpatient (REF) | payer OTHER, SELFPAY ==
--- OUTSIDE RECORDS SUMMARY | 2024-07-13 09:07 | XMS_ITS | Encounter Summary ---
Author Organization [employer] Address [address] [facility] [facility] [address] [place] [address] Care Team Providers Care Bedspread Cutter Hand Name Role Phone Name, Rashad JAFFE Primary Care Provider [phone] Encounter Details Date Type Department Care Team (Latest Contact Info) Description 06/28/2024 Travel Social History Tobacco Use Types Packs/Day Years Used Date Smoking Tobacco: Never Passive Smoke Exposure: Never Smokeless Tobacco: Never Alcohol Use Standard Drinks/Week Comments Never 0 (1 standard drink = 0.6 oz pur e alcohol) Alcohol Answer Date Recorded Frequency of Alcohol Consumption Not on file 11/12/2023 Average Number of Drinks Not on file 024 Frequency of Binge Drinking Not on file 10/18 Score 0 11/12/2023 Depression Answer Date Recorded Patient Health Questionnaire-9 Score 0 12/13/2022 Housing Stability Answer Date Recorded What is your housing situation today? I have altheaolivia gonzáles 06/10/[address] you li ve. Do you have problems with any of the following? None of the above 06/10/2024 Food Insecurity Answer Date Recorded Within the past 12 months, y ou worried that your food would run out before you got money to buy more: Never True 06/10/2024 Within the past 12 months,th e food you bought just didn't last and you didn't have enough money to get more: Never True Transportation Answer Date Recorded In the past 12 months, has l ack of transportation kept you from medical appts, meetings, work or from getting things needed for daily living? No 06/10/2024 Utilities Answer Date Recorded In the past 12 months, has t he [employer], gas, oil or water [employer] threatened to shut off services in your home? No 06/10/2024 Depression Answer Date Recorded Patient Health Questionnaire-2 Score 0 12/13/2022 Internet Access Answer Date Recorded Internet Access Q1 Yes 06/10/2024 Internet Access Q2 Not on file 06/10/2024 Comments Unknown Sex and Gender Information Value Date Recorded Sex Assigned at Female 03/18/2022 10:14 AM EDT Legal Sex Female 10:14 AM EDT Gender Identity Female 03/18/2022 10:14 AM EDT Sexual Orientation Straight 03/18/2022 10 :14 AM EDT documented as of this encounter Plan of Treatment Upcoming Encounters Date Type Department Care Team (Late st Contact Info) Description 07/26/2024 2:00 PM EDT Clinical Support [facility] MEDICINE [address] [place] [address] 09/13/2024 2:00 PM EDT Office Visit [facility] OPTOMETRY [address] [place] [address] Michael, April, OD [address] [place] [address] documented as of this encounter Goals Goal Patient Goal Type Associated Problems Recent Progress Patient-Stated? Author Blood Pressure < 140/90 Blood Pressure 154/96(2024 1:45 PM EST) No Tiana Hill, PharmD Note: Achieve goal BP of < 140/90 mmHg over the next 6 months. Record your blood pressure once per day Blood Pressure No Tiana Hill, PharmD Note: SMBP daily and record values for review in follow up Hemoglobin A1c < 7 Result Component 13.6(06/21/19 1:57 PM EST) No Tiana Hill, PharmD Note: Achieve goal A1c of <7% over the next 6 months documented as of this encounter Visit Diagnoses Not on filedocumented in this encounter Additional Health Concerns Assessment Noted Time PHQ-9 Depression Total Score: 0 12/14/19 11:13 AM EDT documented as of this encounter Care Teams Bedspread Cutter Hand Relationship Specialty Start Date End Date Name, MD Rashad [address] [place] [address] PCP - General Family Medicine 01/30/18 documented as of this encounter
--- OUTSIDE RECORDS SUMMARY | 2024-07-13 09:07 | XMS_ITS | Encounter Summary ---
Author Organization [employer] Address [address] [place] [address] [address] [place] [address] Care Team Providers Care Scientific Manager Name Role Phone Name, Rashad JAFFE Primary Care Provider [phone] Reason for Visit * Reason Comments Blood Pressure Check Encounter Details Date Type Department Care Team (Latest Contact Info) Description 06/28/2024 1:30 PM EST Clinical Support [facility] MEDICINE [address] [place], [place] [id number] Opal Montalvo RN Hypertension, unspecified type [I10] Social History Tobacco Use Types Packs/Day Years [...] is your housing situation today? I have althea gonzáles 06/10/[address] you [...] the past 12 months, has t he electric, gas, oil or water company threatened to shut off services in your [...] AM EDT documented as of this encounter Last Filed Vital Signs Vital Sign Reading Time Taken Comments Blood Pressure 154/96 06/28/2024 1:45 PM EST Pulse 88 06/28/2024 1:45 PM EST Temperature 37.4 ??C (99.3 ??F) 06/28/2024 1:44 PM ES T Respiratory Rate 16 06/28/2024 1:44 PM EST Oxygen Saturation 97% 06/28/2024 1:44 PM EST Inhaled Oxygen Concentration - - Weight 96.3 kg (212 lb 6.4 oz) 06/28/2024 1:44 P M EST Height - - Body Mass Index 35.35 03/09/2024 1:54 PM EDT documented in this encounter Progress Notes * Opal Montalvo RN - 06/28/2024 1:30 PM EST S: Pt arrived to blue team for BP check nurse visit. At last ov on 06/21/24 BP noted 152/96 and recommendations made on that day by PCP were I recommended the patient to please use her medications. We discussed again the consequences of uncontrolled diabetes and hypertension. I sent refills of her medications to her pharmacy. She is recommended evaluation with fasting blood work listed below. I asked her to start checking her blood pressure at home daily. I will ask that she gets visit with team nurses for blood pressure recheck next week. Pt denies, cp, sob, headaches, blurry vision, lightheadedness, dizziness smoking or drinking alcohol. Pt denies checking their BP daily and reports theyhave not picked up their BP monitor. Pt reports they wake up at 4 am to get ready for work and taketheir medications around 9 am on their lunch break. Pt reports they eat fried chicken white rice atleast 3-4x a week. Pt reports they don't eat a lot of fruits and vegetables. Pt reports sometimes they'll have mangos and avocados. Pt reports taking their Metoprolol this morning but denies taking Ch lorthalidone and Lisinopril. Tc to [facility] pharmacy who reports pt has never picked up their medications ordered on 06/21/24. O: Pt rx metoprolol succinate XL (Toprol-XL) 50 MG 24 hr tablet (Take 1 tablet (50 mg) by mouth in the morning), chlorthalidone (Hygroton) 25 MG tablet (Take 1 tablet (25 mg) by mouth in the morning.), lisinopril 30 MG tablet (Take 1 tablet (30 mg) by mouth in the morning.) A: Pt is alert, answer es questions appropriately and does not need an motor vehicle parts interpreter. Pt is not compliant of BP regimen but reports taking their BP medication and taking it as prescribed. Pt is not at goal of BP <140/90 and lifestyle modifications implemented during the visit. P: Pt advised to go to [facility] pharmacy to pick up man their medications ordered on 06/21/24 and take them asprescribed. Pt provided with BP log, advised to pick up man their monitor, check their BP daily and document their readings up until their next appointment with the provider. Pt advised to increase intakes of fruits and vegetables and follow a low sodium diet. Pt advised to avoid intake of white refinecarbs and fried processed foods. Pt advised to eat brown rice and whole grain options instead, increase intake of baked chicken and fish. Pt informed message will be forwarded to PCP and we'll call back with updates. Pt verbalized understanding and message forwarded to PCP for review. . documented in this encounter Plan of Treatment Upcoming Encounters Date Type Department Care Team (Late st Contact Info) Description 07/26/2024 2:00 PM EDT Clinical Support [address] [address] 09/13/2024 2:00 PM EDT Office Visit [facility] OPTOMETRY [address] [place] [address] Michael, April, OD [address] [place] [address] documented as of this encounter Goals Goal Patient Goal Type Associated Problems Recent Progress Patient-Stated? Author Blood Pressure < 140/90 Blood Pressure 154/96(2024 1:45 PM EST) No Tiana Hill, Ed Note: Achieve goal BP of < 140/90 mmHg over the next 6 months. Record your blood pressure once per day Blood Pressure No Tiana Hill, Ed Note: SMBP daily and record values for review in follow up Hemoglobin A1c < 7 Result Component 13.6(06/21/19 1:57 PM EST) No Tiana Hill, Ed Note: Achieve goal A1c of <7% over the next 6 months documented as of this encounter Visit Diagnoses Diagnosis Hypertension, unspecified type [I10] documented in this encounter Additional Health Concerns Assessment Noted Time PHQ-9 Depression Total Score: 0 12/14/19 23 11:13 AM EDT documented as of this encounter Care Teams Scientific Manager Relationship Specialty Start Date End Date Name, MD Rashad [address] [place] [address] PCP - General Family Medicine 01/30/18 documented as of this encounter
--- OUTSIDE RECORDS SUMMARY | 2024-07-13 09:07 | XMS_ITS | Encounter Summary ---
Author Organization [employer] Address [address] [facility] [address] [place] [address] Care Team Providers Care Mat Cutter Name Role Phone Name, Rashad JAFFE Primary Care Provider [phone] Encounter Details Date Type Department Care Team ([facility] st Contact Info) Description 06/29/2024 Telephone [facility] MEDICINE [address] [place] [address] Opal Montalvo, RN Social History Tobacco Use Types Packs/Day Years [...] AM EDT documented as of this encounter Miscellaneous Notes * Telephone Encounter - Opal Montalvo RN - 06/29/2024 9:30 AM EST Tc to [facility] pharmacy to confirm if pt picked up their medications at instructed to after their nurse visit. Marguerite answered, reports pt only picked up the lisinopril and refused the chlorthalidone, atorvastatin, glipizide and aspirin at this time. Message received from PCP stating Give her another visit for BP check in a couple of week with team nurse . Tc to pt to let them know that provider would like pt to come in for BP check and discuss about not pickling up their other medications Pt reports they were unable to pickup driver other medications because they cannot afford it and informed pt we'll call [facility] pharmacy to confirm of coverage. Pt advised to continue to take their medications as prescribed, check their BP daily and document their readings up until the next appt with blue team nurses. Pt advised to bring the BP log to their next appt with blue team nurse and scheduled on 07/26/24. Tc to [facility] pharmacy reports that chlorthalidone, atorvastatin, glipizide are covered but the aspirin is not due to it being an otc. Chlorthalidone co-pay is $18.69, Aspirin out of pocket is $13.12 for a 90 day supply and Glipizide is $9.88. FYI forwarded to PCP for review. * Telephone Encounter - Opal Montalvo RN - 06/29/2024 9:30 AM EST ----- Message from Rsahad De La Cruz MD sent at 06/28/2024 3:20 PM EST ----- Give her another visit for BP check in a couple of week with team nurse ----- Message ----- From: Opal Montalvo RN Sent: 06/28/2024 2:50 PM EST To: Rashad De La Cruz MD Please review and advise BP check. documented in this encounter Plan of Treatment Upcoming Encounters Date Type Department Care Team (Late st Contact Info) Description 07/26/2024 2:00 PM EDT Clinical Support [facility] MEDICINE [address] [place] [address] 09/13/2024 2:00 PM EDT Office Visit [facility] OPTOMETRY [address] [place] [address] April Rodriguez, OD [address] [place] [address] documented as of this encounter Goals Goal [...] documented as of this encounter Care Teams Mat Cutter Relationship Specialty Start Date End Date Name, MD Rashad [address] [place] [address] PCP - General Family Medicine 01/30/18 documented as of this encounter
--- OUTSIDE RECORDS SUMMARY | 2024-07-13 09:07 | XMS_ITS | Clinical Summary ---
Author Organization [employer] Address [address] [place] [address] [address] [place] [address] Care Team Providers Care Bottom Brusher Name Role Phone Name, Rashad JAFFE Primary Care Provider [phone] Allergies Active Allergy Reactions Criticality Noted Date Comments Empagliflozin 08/22/2023 Vaginal irritation Metformin 08/22/2023 Blurred vision Medications Blood Pressure kit Use to monitor blood pressure 2 hours after taking meds 021 Active albuterol (2.5 MG/3ML) 0.083% nebulizer solution Inhale 3 mL every 4 (four) hours if needed. 021 Active meclizine (Antivert) 12.5 MG tablet take 1 Tablet by oral route 3 times every day as needed 022 Active triamcinolone (Nasacort) 55 MCG/ACT nasal inhaler spray 2 by inhalation route every day 022 Active lidocaine (Lidoderm) 5 % patchIndication s:Acute pain of right shoulder Apply 1 patch topically in the morning. Remove & discard patch within 12 hours or as directed by . 30 patch 1 023 Active Diclofenac Sodium (Voltaren) 1 % gelIndications: Acute pain of right shoulder Apply 2 g topically if needed in the morning and at bedtime (muscle pain). 100 g 3 023 Active Blood Glucose Monitoring Suppl (FreeStyle Lite) deviceIndicatio ns:E11.9 Use as directed to test BG 1 each 023 Active diazePAM (Valium) 5 MG tablet Take 5 mg by mouth if needed in the morning, at noon, and at bedtime. 023 Active loratadine (Claritin) 10 MG tablet Take 1 tablet (10 mg) by mouth if needed each day for allergies. 30 tablet 3 023 Active fluticasone (Flonase) 50 MCG/ACT nasal spray Administer 2 sprays into each nostril if needed each day for rhinitis or allergies. Shake gently. Before first use, prime pump. After use, clean tip and replace cap. 16 g 3 023 Active Alcohol Swabs (Alcohol Prep) padsIndications :Type 2 diabetes mellitus without complication, without long-term current use of insulin (CMS/[facility]) Use as directed prior to SMBG 100 each 11 023 Active Ventolin HFA 108 (90 Base) MCG/ACT inhaler INHALE 2 PUFFS BY MOUTH EVERY 6 HOURS NEEDED FOR WHEEZING 18 g 1 023 Active Continuous Glucose Route Sales Delivery Driver (FreeStyle Venecia 2 Allred) device Scan sensor every 8 hours 1 each 024 Active Continuous Glucose Sensor (FreeStyle Venecia 2 Sensor) [facility] Apply 1 sensor every 14 days 2 each 024 Active glucose blood (FreeStyle Precision Vitaly Test) test strip Use to test blood sugar 3 times daily 100 each 12 024 2024 Active acetaminophen (Tylenol 8 Hour) 650 MG ER tabletIndicatio ns:Chronic pain of left knee Take 1 tablet (650 mg) by mouth every 6 (six) hours. 90 tablet 1 024 2024 Active FreeStyle lancetsIndicati ons:Type 2 diabetes mellitus with hyperglycemia, without long-term current use of insulin (CMS/HCC) 1 each by Other route See administration instructions. Test blood sugars once daily 100 each 11 024 Active metoprolol succinate XL (Toprol-XL) 50 MG 24 hr tabletIndicatio ns:Primary hypertension Take 1 tablet (50 mg) by mouth in the morning. 90 tablet 3 024 Active lisinopril 30 MG tabletIndicatio ns:Hypertension , unspecified type Take 1 tablet (30 mg) by mouth in the morning. 90 tablet 3 025 Active chlorthalidone (Hygroton) 25 MG tabletIndicatio ns:Hypertension , unspecified type Take 1 tablet (25 mg) by mouth in the morning. 90 tablet 025 Active glipiZIDE XL (Glucotrol XL) 5 MG 24 hr tablet Take 1 tablet (5 mg) by mouth Once per day. Do not crush, chew, or split. 30 tablet 11 025 2025 Active atorvastatin (Lipitor) 80 MG tablet Take 1 tablet (80 mg) by mouth at bedtime. 90 tablet 3 025 Active aspirin (Aspirin Low Dose) 81 MG EC tablet Take 1 tablet (81 mg) by mouth in the morning. 90 tablet 3 025 Active tiZANidine (Zanaflex) 4 MG capsuleIndicati ons:Acute pain of right shoulder Take 1 capsule (4 mg) by mouth 3 times daily. 90 capsule 1 023 2024 Discontinued(T herapy completed) Aspirin Low Dose 81 MG EC tablet TAKE 1 TABLET BY MOUTH EVERY MORNING 90 tablet 3 023 2024 Discontinued(R eorder (will not trigger notification to Pharmacy)) atorvastatin (Lipitor) 80 MG tablet TAKE 1 TABLET BY MOUTH AT BEDTIME 90 tablet 3 023 2024 Discontinued(R eorder (will not trigger notification to Pharmacy)) glipiZIDE XL (Glucotrol XL) 5 MG 24 hr tablet Take 1 tablet (5 mg) by mouth Once per day. Do not crush, chew, or split. 30 tablet 024 2024 Discontinued(R eorder (will not trigger notification to Pharmacy)) dulaglutide (Trulicity) 0.75 MG/0.5ML solution pen-injector Inject 0.75 mg under the skin 1 (one) time per week. 4 each 024 2024 Discontinued(C ost of medication) lisinopril 30 MG tabletIndicatio ns:Primary hypertension Take 1 tablet (30 mg) by mouth in the morning. 90 tablet 3 024 2024 Discontinued(R eorder (will not trigger notification to Pharmacy)) chlorthalidone (Hygroton) 25 MG tabletIndicatio ns:Primary hypertension Take 1 tablet (25 mg) by mouth in the morning. 90 tablet 024 2024 Discontinued(R eorder (will not trigger notification to Pharmacy)) Active Problems Problem Noted Date Diagnosed Date Skin lesion 03/09/2024 Abscess of breast 03/09/2024 Assessment & Plan (03/09/2024 2:31 PM EDT): Skin lesion under left breast, likely forming abscess. -prescribing empirical Doxycyline -referral placed to general surgery 03/09/24 -return and ER precautions given. Dyspnea on exertion 04/09/2022 History of myocardial infarction 04/09/2022 Radicular syndrome of lower limbs 07/17/2018 LFTs abnormal 03/06/2018 Mild intermittent asthma 03/06/2018 Type 2 diabetes mellitus wit h hyperglycemia, without long-term current use of insulin 03/06/2018 Assessment & Plan (12/11/2022 8:52 AM EDT): Lab Results Component Value Date HGBA1C 10.9 (A) 11/29/2022 -Pt reports recently restarted Jardiance 10mg. Has room to increase dose. However, with currently A1c, discussed increased risk for recurrent infx with SGLT2-I. Pt declines any additional medication at this time, aware of med SE. Pt would like to continue with lifestyle interventions and monotherapy at this time Backache 01/10/2017 Occipital headache 01/10/2017 Atherosclerosis of coronary artery 06/17/2012 Hypertension 11/05/2011 Assessment & Plan (03/09/2024 2:34 PM EDT): -BP elevated in [facility] today 161/86 on 03/09/24 Pt reported not receiving her medbox. -Prescribed lisinopril and chlorthalidone -Encouraged to continue monitoring BP at home and follow-up with PCP. Assessment & Plan (12/11/2022 8:43 AM EDT): -BP elevated in office -Continues with lisinopril and chlorthalidone -Encouraged to continue monitoring BP at home Idiopathic peripheral neuropathy 11/05/2011 Lung mass 06/06/2011 Resolved Problems Problem Noted Date Diagnosed Date Resolved Date Acute pain of right shoulder 06/04/2022 08/15/2022 Impaired fasting glucose 12/26/201112/2022 Asthma 11/05/2011 08/15/2022 Encounters Date Type Department Care Team Description 06/29/[address] [address] Opal Montalvo RN 06/28/2024 1:30 PM EST Clinical Support [address] [address] Opal Montalvo RN Hypertension, unspecified type [I10] 06/28/2024 Travel 06/21/2024 1:30 PM EST Office Visit [address] [address] Rashad De La Cruz MD Type 2 diabetes mellitus with hyperglycemia, without long-term current use of insulin ([facility]) (Primary Dx); Hypertension, unspecified type; Non compliance with medical treatment 06/21/2024 Travel 06/10/2024 Patient Outreach [address] [address] Rashad De La Cruz MD Pre-visit Planning (SDOH screening negative and Tobacco screening negative) 05/26/[address] [address] Rashad De La Cruz MD pre-op 05/26/[address] [address] Rashad De La Cruz MD 04/22/[address] [address] Dom Cage [place] june recall 04/13/2024 Travel from Last 3 Months Immunizations Name Administration Dates Next Due Influenza injectable quadrivalent preservative f ree 03/06/2020 Influenza, seasonal, injectable, preservative fr ee 02/16/2024 TD (adult), 2 Lf tetanus tox oid, preservative free, adsorbed 12/17/2004 Tdap 01/17/2015 Social History Tobacco Use Types Packs/Day Years Used Date Smoking Tobacco: Never Passive Smoke Exposure: Never Smokeless Tobacco: Never Tobacco Cessation:Counseling Given: Not Answered Alcohol Use Standard Drinks/Week Comments Never 0 [...] Orientation Straight 03/18/2022 10 :14 AM EDT Last Filed Vital Signs Vital Sign Reading Time Taken Comments Blood Pressure 154/96 06/28/2024 1:45 PM EST Pulse 88 06/28/2024 1:45 PM EST Temperature 37.4 ??C (99.3 ??F) 06/28/2024 1:[address] Respiratory Rate 16 06/28/2024 1:44 PM EST Oxygen Saturation 97% 06/28/2024 1:44 PM EST Inhaled Oxygen Concentration - - Weight 96.3 kg (212 lb 6.4 oz) 06/28/2024 1:44 P M EST Height 165.1 cm (5' 5 ) 03/09/2024 1:54 PM EDT Body Mass Index 35.35 03/09/2024 1:54 PM EDT Plan of Treatment Upcoming Encounters Date Type Department Care Team (Late st Contact Info) Description 07/26/2024 2:00 PM EDT Clinical Support [facility] MEDICINE [address] [place] [address] 09/13/2024 2:00 PM EDT Office Visit [facility] OPTOMETRY [address] [place] [address] Michael, April, OD [address] [place] [address] Health Maintenance Due Date Last Done Comments CT Colonography 1969 Colonoscopy 1969 Colorectal Cancer Screening 1969 FIT DNA/Cologuard 1969 FIT 1969 FOBT 1970 HIV Screening 1970 Sigmoidoscopy 1969 Hepatitis C Screening 12/28/1987 Hepatitis B Vaccines (1 of 3 - 19+ 3-dose series) 1988 Pneumococcal Vaccine: 50+ Years (1 of 2 - PCV) 1988 Pap Smear 1990 Cervical Cancer Screening 12/28/1999 HPV/Cotest 12/28/1999 Zoster Vaccines (1 of 2) 12/28/2019 Depression Screening 12/14/2023 12/13/2022, 12/14/19 23 COVID-19 Vaccine ( - 2023- season) 2024 Diabetes: Urine Protein Screening 09/08/2024 09/09/2023, 05/17/2022 Lipid Panel 09/08/2024 09/09/2023, 05/17/2022 Diabetes: Hemoglobin A1C 09/18/2024 025, 02/16/2024, 09/09/2023, Additional history exists Alcohol/Substance Use Screening 11/11/2024 11/12/2023 Diabetes: Foot Exam 11/11/2024 11/12/2023, 11/12/2023, 11/12/2023, Additional history exists DTaP/Tdap/Td Vaccines (2 - Td or Tdap) 01/17/2025 01/17/2015, 12/17/2004 Tobacco Screening 03/15/2025 03/15/2024 SDOH Screening 06/10/2025 06/10/2024 Eye Exam 03/12/2026 03/12/2024, 02/17, 03/12/2024, Additional history exists Mammogram 04/09/2026 04/09/2024, 10/09/2021 RSV Patients and Patients Aged 60 years or older (1 - 1-dose 75+ series) 2044 Influenza Vaccine Completed 02/16/2024, 03/06/2020 HIB Vaccines Aged Out No longer eligi ble based on patient's age to complete this topic HPV Vaccines Aged Out No longer eligi ble based on patient's age to complete this topic Hepatitis A Vaccines Aged Out No long er eligible based on patient's age to complete this topic IPV Vaccines Aged Out No longer eligi ble based on patient's age to complete this topic Meningococcal Vaccine Aged Out No ben shaniqua eligible based on patient's age to complete this topic RSV under 20 months Aged Out No longe r eligible based on patient's age to complete this topic Rotavirus Vaccines Aged Out No longer eligible based on patient's age to complete this topic Goals Goal Patient Goal Type Associated Problems [...] of <7% over the next 6 months Procedures Procedure Name Priority Date/Time Associated Diagnosis Comments POCT GLYCATED HEMOGLOBIN, TOTAL Routine 06/21/2024 1:57 PM EST Type 2 diabetes mellitus with hyperglycemia, without long-term current use of insulin ([facility]) POCT GLUCOSE Routine 06/21/2024 1:52 PM EST Type 2 diabetes mellitus with hyperglycemia, without long-term current use of insulin ([facility]) BI MAMMOGRAM SCREENING TOMOSYNTHESIS BILATERAL Routine 04/09/2024 2:25 PM EST Screening mammogram for breast cancer LIPID PANEL, STANDARD Routine 09/09/2023 9:18 AM EDT Type 2 diabetes mellitus with hyperglycemia, without long-term current use of insulin ([facility]) Needle phobia Hyperglycemia ALBUMIN, RANDOM URINE W/CREATININE Routine 09/09/2023 9:15 AM EDT Type 2 diabetes mellitus with hyperglycemia, without long-term current use of insulin ([facility]) Needle phobia Hyperglycemia from Last 3 Months or Most Recently Relevant to Health Maintenance Results * (ABNORMAL) POCT HGB A1C (06/21/2024 1:57 PM EST) Hemoglobin A1C 13.6(A) 4.0 - 6.0 % QC Media Lot # [id number] Lot# Expiration Date Blood 06/21/2024 1:57 PM EST us Rashad De La Cruz MD POINT OF CARE TEST ENTER/EDIT OR DERABLES Final Result * (ABNORMAL) POCT Glucose (06/21/2024 1:52 PM EST) Glucose Blood, POC 227(A) 60 - 200 mg/dL QC Media Lot # [id number] Lot# Expiration Date 025 Blood Capillary blood specimen / Unknown 06/21/2024 1:52 PM EST Result Levy De La Cruz MD POINT OF CARE TEST ENTER/EDIT OR DERABLES Final Result * BI Mammogram Screening Tomosynthesis Bilateral (04/09/2024 2:25 PM EST) Anatomical Region Laterality Modality Breast Bilateral Mammography 04/09/2024 2:25 PM EST Narrative 04/20/2024 2:23 PM EST ? [facility] ? [address] ?[place], [place] [address] ? Mammography Report ? Signed ? Patient: Hanna Sevilla I ?MR#: ?? [id number] ? : 1970 ?Acct:[id number] ? Age/Sex: 53 / F ?ADM Date: 04/09/24 ? Loc: HO.MAMMO ? Attending Dr: Luz Chi MD ? Ordering Physician: Luz Chi MD ?Results: 1N ?? egative ? Date of Service: 04/09/24 ?Follow Up: 1 Year From Orig ?? inal Mammogram ? Procedure(s): MM tomosynthesis screening BI ?? Accession Number(s): [id number] ? cc: Luz Chi MD; Dorothy,Rashad JAFFE ? EXAMINATION: ?? MM SCREENING DIGITAL BREAST TOMOSYNTHESIS, BILATERAL ? CLINICAL INFORMATION: ? Screening. Asymptomatic. ? COMPARISON: ?? Mammography: Comparison is made with available priors ? TECHNIQUE: ?? Digital breast mammography with tomosynthesis is performed in both the ?? craniocaudal and mediolateral oblique views along with computer-aided ?? detection (CAD). ? FINDINGS: ?? There are scattered areas of fibroglandular density (ACR BI-RADS breast ?? composition Category b). ? There are no significant masses, abnormal calcifications, or other ?? abnormalities. ? MM/MM tomosynthesis screening BI ?? IMPRESSION: ?? No mammographic evidence of malignancy. ? ASSESSMENT: ? BI-RADS BI-RADS 1 - Negative ? RECOMMENDATION: ?? Routine annual mammography screening. ? 1 year F/U ? This examination should not preclude the clinical evaluation of a ?? suspicious palpable abnormality. ? This patient's information was entered into a reminder system with a ?? target due date for their next mammogram. ? Electronically signed by: ??Samantha Zurita DO ??04/20/2024 02:21 PM EST ?? RP ? Dictated By: ?Samantha Zurita DO ? Signed By: ?<Electronically signed by Samantha Zurita, DO in OV> ? 04/20/24 1421 ? DD/ 1425 ? TD/TT: 04/09/24 1438 ? Head Of Business Development: ? Procedure Note [place], Image - 04/20/2024 [facility] [address] [place] [address] Mammography Report Signed Patient: Hanna Sevilla IMR#: [id number] : 1970Acct:[id number] Age/Sex: 53 / FADM Date: 04/09/24 Loc: HO.MAMMO Attending Dr: Luz Chi MD Ordering Physician: Luz Chi MDResults: 1N egative Date of Service: 04/09/24Follow Up: 1 Year From Orig inal Mammogram Procedure(s): MM tomosynthesis screening BI Accession Number(s): [id number] cc: Luz Chi MD; Name,Rashad JAFFE EXAMINATION: MM SCREENING DIGITAL BREAST TOMOSYNTHESIS, BILATERAL CLINICAL INFORMATION: Screening. Asymptomatic. COMPARISON: Mammography: Comparison is made with available priors TECHNIQUE: Digital breast mammography with tomosynthesis is performed in both the craniocaudal and mediolateral oblique views along with computer-aided detection (CAD). FINDINGS: There are scattered areas of fibroglandular density (ACR BI-RADS breast composition Category b). There are no significant masses, abnormal calcifications, or other abnormalities. MM/MM tomosynthesis screening BI IMPRESSION: No mammographic evidence of malignancy. ASSESSMENT: BI-RADS BI-RADS 1 - Negative RECOMMENDATION: Routine annual mammography screening. 1 year F/U This examination should not preclude the clinical evaluation of a suspicious palpable abnormality. This patient's information was entered into a reminder system with a target due date for their next mammogram. Electronically signed by: Samantha Zurita DO 04/20/2024 02:21 PM [facility] Dictated By: Samantha Zurita DO Signed By: <Electronically signed by Samantha Zurita DO in OV> 04/20/24 1421 DD/ 1425 TD/TT: 04/09/24 1438 Head Of Business Development: us Luz Chi MD IMG BI PROCEDURES Final Re sult * (ABNORMAL) Lipid Panel, Standard (09/09/2023 9:18 AM EDT) Triglycerides 139 <150 mg/dL [facility] Comment:Desirable Triglyceri de: less than 150 mg/dLBorderline High Triglyceride 150-199 mg/dLHigh Triglyceride: 200-499 mg/dLVery High Triglyceride: greater than or equal to 5OO mg/dL Cholesterol 207(H) <200 mg/dL [facility] Comment:Desirable Cholestero l: less than 200 mg/dLBorderline High Cholesterol: 200-239 mg/dLHigh Cholesterol: greater than 239 mg/dL LDL Cholesterol Calculated 136(H) <100 mg/dL [facility] Comment:Desirable LDL: less than 100 mg/dLNear Optimal/Above Optimal LDL: 110- 129 mg/dLBorderline High LDL: 130-159 mg/dLHigh LDL: 160-189 mg/dLVery High LDL: greater than or equal to 190 mg/dL HDL Cholesterol 44 >40 mg/dL [facility] Comment:Desirable HDL: great er than 40 mg/dL Note: This HDL assay may give artificially low results in patients with liver disease. Blood Venous blood specimen / Unknown 09/09/2023 9:18 AM EDT 09/09/2023 11:24 AM EDT us Rashad De La Cruz MD LAB BLOOD ORDERABLES Final Resul t Performing Organization Address [facility] de Phone Number [facility] [address] [place] [phone] * Albumin, Random Urine W/Creatinine (09/09/2023 9:15 AM EDT) Creatinine, Urine 129.79 mg/dL [facility] Microalbumin Urine 27.0 mg/L [facility] Microalbum Creatinine Ratio Ur 20.8 <30 ug/mg cr [facility] Comment:Albumin/Creatinine R atio Reference Ranges: Normal: < 30 ug/mg creatinine Microalbuminuria: 30 - 300 ug/mg creatinineClinical Albuminuria: > 300 ug/mg creatinine Urine (Urine, Random) 09/09/2023 9:15 AM EDT 09/09/2023 11:13 AM EDT us Rashad De La Cruz MD LAB URINE ORDERABLES Final Resul t Performing Organization Address [facility] Co de Phone Number [facility] [address] [place] [phone] from Last 3 Months or Most Recently Relevant to Health Maintenance Insurance [facility] * Guarantor: Hanna Lee I Account Type Relation to Patient Date of Phone Billing Address Personal/Family Self [address] Care Teams Bottom Brusher Relationship Specialty Start Date End Date Name, MD Rashad [address] [place] [address] [place] [address] PCP - General Family Medicine 01/30/18
--- OUTSIDE RECORDS SUMMARY | 2024-07-13 09:08 | XMS_ITS | Encounter Summary ---
Author Organization [employer] Address [address] [facility] [address] [place] [address] Care Team Providers Care Director Of Placement Name Role Phone Name, Rashad JAFFE Primary Care Provider [phone] Encounter Details Date Type Department Care Team (Latest Contact Info) Description 06/21/2024 Travel Social History Tobacco Use Types Packs/Day [...] the past 12 months, has t he [employer], gas, oil or water [employer] threatened to shut off services in your [...] Description 07/26/2024 2:00 PM EDT Clinical Support [facility] MEDICINE [address] [place] [address] 09/13/2024 2:00 PM EDT Office Visit [facility] OPTOMETRY [address] [place] [address] Michael, April, OD [address] [place] [address] documented as of this encounter Goals Goal [...] documented as of this encounter Care Teams Director Of Placement Relationship Specialty Start Date End Date Name, MD Rashad [address] [place] [address] PCP - General Family Medicine 01/30/18 documented as of this encounter
--- OUTSIDE RECORDS SUMMARY | 2024-07-13 09:08 | XMS_ITS | Encounter Summary ---
Author Organization [employer] Address [address] [facility] [address] [place] [address] Care Team Providers Care Milling Machinist Name Role Phone Name, Rashad JAFFE Primary Care Provider [phone] Encounter Details Date Type Department Care Team (Late st Contact Info) Description 03/26/2024 Telephone [facility] OPTOMETRY [address] [place] [address] Michael, April, OD [address] [place] [address] Social History Tobacco Use Types Packs/Day Years [...] housing situation today? I have althea gonzáles 03/03/[address] you li ve. Do you have problems with any of the following? None of the above 03/03/2023 Food Insecurity Answer Date Recorded Within the past 12 months, y ou worried that your food would run out before you got money to buy more: Never True 03/03/2023 Within the past 12 months,th e food you bought just didn't last and you didn't have enough money to get more: Never True Transportation Answer Date Recorded In the past 12 months, has l ack of transportation kept you from medical appts, meetings, work or from getting things needed for daily living? No 03/03/2023 Utilities Answer Date Recorded In the past 12 months, has t he electric, gas, oil or water company threatened to shut off services in your home? No 03/03/2023 Depression Answer Date Recorded Patient Health Questionnaire-2 Score 0 12/13/2022 Comments Unknown Sex and Gender Information Value [...] Description 07/26/2024 2:00 PM EDT Clinical Support [facility] MEDICINE [address] [place] [address] 09/13/2024 2:00 PM EDT Office Visit [facility] OPTOMETRY [address] [place] [address] Michael, April, OD [address] [place] [address] documented as of this encounter Goals Goal [...] documented as of this encounter Care Teams Milling Machinist Relationship Specialty Start Date End Date Name, MD Rashad [address] [place] [address] PCP - General Family Medicine 01/30/18 documented as of this encounter
--- OUTSIDE RECORDS SUMMARY | 2024-07-13 09:08 | XMS_ITS | Encounter Summary ---
Author Organization [facility] Address [address] [place] [address] 7 [place] [address] Care Team Providers Care Habilitation Worker Name Role Phone Name, Rashad JAFFE Primary Care Provider [phone] Reason for Visit * Reason Comments Follow-up Encounter Details Date Type Department Care Team ([facility] st Contact Info) Description 06/21/2024 1:30 PM EST Office Visit [facility] [address] [place], [place] [phone] Name, MD Rashad [address] [place] [address] Type 2 diabetes mellitus with hyperglycemia, without long-term current use of insulin ([facility]) (Primary Dx); Hypertension, unspecified type; Non compliance with medical treatment Social History Tobacco Use Types Packs/Day Years [...] Sign Reading Time Taken Comments Blood Pressure 152/96 06/21/2024 2:00 PM EST Pulse 105 06/21/2024 1:43 PM EST Temperature 35.9 ??C (96.7 ??F) 06/21/2024 1:43 PM ES T Respiratory Rate 18 06/21/2024 1:43 PM EST Oxygen Saturation 98% 06/21/2024 1:43 PM EST Inhaled Oxygen Concentration - - Weight 95.9 kg (211 lb 6.4 oz) 06/21/2024 1:43 P M EST Height - - Body Mass Index 35.18 03/09/2024 1:54 PM EDT documented in this encounter Progress Notes * Rashad De La Cruz MD - 06/21/2024 1:30 PM EST Subjective Patient ID: Hanna Jimenez is a 53 y.o. female who presents for Follow-up. Patient comes for a follow-up visit. She is asymptomatic. She denies any chest pains or shortness of breath. She does not bring her glucose meter. Today her blood pressure is elevated. She explains to me that she stopped using her medications several months ago. She tells me that she lost her prescriptions as she was moving to a different apartment. She has a personal history of noncompliance with her medications. She has a history of previous CO. We have discussed multiple times of the importance of using her medications to decrease her risk of another heart attack and to decrease the risk of diabetes complications. Review of Systems Constitutional: Negative for chills and fever. HENT: Negative for sore throat. Respiratory: Negative for cough, shortness of breath and wheezing. Cardiovascular: Negative for chest pain, palpitations and leg swelling. Gastrointestinal: Negative for abdominal pain. Visit Vitals BP (!) 152/96 Pulse 105 Temp 96.7 ??F (35.9 ??C) (Temporal) Resp 18 Wt 211 lb 6.4 oz (95.9 kg) SpO2 98% BMI 35.18 kg/m?? Smoking Status Never BSA 2.1 m?? Objective Physical Exam Constitutional: Appearance: Normal appearance. Cardiovascular: Rate and Rhythm: Normal rate and regular rhythm. Heart sounds: No murmur heard. No gallop. Pulmonary: Effort: Pulmonary effort is normal. No respiratory distress. Breath sounds: Normal breath sounds. No wheezing. Musculoskeletal: Right lower leg: No edema. Left lower leg: No edema. Neurological: Mental Status: She is alert. Assessment/Plan Diagnoses and all orders for this visit: Type 2 diabetes mellitus with hyperglycemia, without long-term current use of insulin ([facility]) Comments: I recommended the patient to please use [...] nurses for blood pressure recheck next week. Orders: - POCT Glucose - POCT HGB A1C - Comprehensive Metabolic Panel; Future - Lipid Panel, Standard; Future - Albumin, Random Urine W/Creatinine; Future Hypertension, unspecified type - lisinopril 30 MG tablet; Take 1 tablet (30 mg) by mouth in the morning. - chlorthalidone (Hygroton) 25 MG tablet; Take 1 tablet (25 mg) by mouth in the morning. - Comprehensive Metabolic Panel; Future - Lipid Panel, Standard; Future - Albumin, Random Urine W/Creatinine; Future Non compliance with medical treatment Other orders - glipiZIDE XL (Glucotrol XL) 5 MG 24 hr tablet; Take 1 tablet (5 mg) by mouth Once per day. Do notcrush, chew, or split. - atorvastatin (Lipitor) 80 MG tablet; Take 1 tablet (80 mg) by mouth at bedtime. - aspirin (Aspirin Low Dose) 81 MG EC tablet; Take 1 tablet (81 mg) by mouth in the morning. documented in this encounter Plan of Treatment Upcoming Encounters Date Type Department Care Team (Late st Contact Info) Description 07/26/2024 2:00 PM EDT Clinical Support [facility] [address] [place], [place] [phone] 09/13/2024 2:00 PM EDT Office Visit [facility] [address] [place], [place] [phone] MichaelApril, OD [address] [place] [address] Scheduled Orders Name Type Priority Associated Diagnoses Orde r Schedule Comprehensive Metabolic Panel Lab Routine Type 2 diabetes mellitus with hyperglycemia, without long-term current use of insulin ([facility]) Hypertension, unspecified type Expected: 06/21/2024 (Approximate), Expires: 06/21/2025 Lipid Panel, Standard Lab Routine Type 2 diabetes mellitus with hyperglycemia, without long-term current use of insulin ([facility]) Hypertension, unspecified type Expected: 06/21/2024 (Approximate), Expires: 06/21/2025 Albumin, Random Urine W/Creatinine Lab Routine Type 2 diabetes mellitus with hyperglycemia, without long-term current use of insulin ([facility]) Hypertension, unspecified type Expected: 06/21/2024 (Approximate), Expires: 06/21/2025 documented as of this encounter Goals Goal [...] 6 months documented as of this encounter Procedures Procedure Name Priority Date/Time Associated Diagnosis Comments POCT GLYCATED HEMOGLOBIN, TOTAL Routine 06/21/2024 1:57 PM EST Type 2 diabetes mellitus with hyperglycemia, without long-term current use of insulin ([facility]) POCT GLUCOSE Routine 06/21/2024 1:52 PM EST Type 2 diabetes mellitus with hyperglycemia, without long-term current use of insulin ([facility]) documented in this encounter Results * (ABNORMAL) POCT HGB A1C (06/21/2024 1:57 PM EST) Hemoglobin A1C 13.6(A) 4.0 - 6.0 % QC Media Lot # [id number] Lot# Expiration Date 7,026 Blood 06/21/2024 1:57 PM EST us Rashad De La Cruz MD POINT OF CARE TEST ENTER/EDIT OR DERABLES Final Result * (ABNORMAL) POCT Glucose (06/21/2024 1:52 PM EST) Glucose Blood, POC 227(A) 60 - 200 mg/dL QC Media Lot # [id number] Lot# Expiration Date [id number] Blood Capillary blood specimen / Unknown 06/21/2024 1:52 PM EST Result Levy De La Cruz MD POINT OF CARE TEST ENTER/EDIT OR DERABLES Final Result documented in this encounter Visit Diagnoses Diagnosis Type 2 diabetes mellitus with hyperglycemia, without long-term current use of insulin ([facility])- Primary Hypertension, unspecified type Non compliance with medical treatment Personal history of noncompliance with medical treatment, presenting hazards to health documented in this encounter Additional Health Concerns Assessment Noted Time PHQ-9 Depression Total Score: 0 12/14/19 23 11:13 AM EDT documented as of this encounter Care Teams Habilitation Worker Relationship Specialty Start Date End Date Name, MD Rashad [address] [place] [address] PCP - General Family Medicine 01/30/18 documented as of this encounter
--- OUTSIDE RECORDS SUMMARY | 2024-07-13 09:08 | XMS_ITS | Encounter Summary ---
Author Organization [employer] Address [address] [place] [address] Care Team Providers Care Business Segment Manager Name Role Phone Name, Rashad JAFFE Primary Care Provider [phone] Encounter Details Date Type Department Care Team ([facility] st Contact Info) Description 05/26/2024 Telephone [facility] [address] [place], [place] [phone] Name, MD Rashad [address] [place] [address] Social History Tobacco Use Types Packs/Day Years [...] Description 07/26/2024 2:00 PM EDT Clinical Support [facility] [address] [place] [address] 09/13/2024 2:00 PM EDT Office Visit [facility] OPT[facility] [address] [place] [address] Michael, April, OD [address] [place] [address] documented as of this encounter Goals Goal [...] documented as of this encounter Care Teams Business Segment Manager Relationship Specialty Start Date End Date Name, MD Rashad [address] [place] [address] PCP - General Family Medicine 01/30/18 documented as of this encounter
--- OUTSIDE RECORDS SUMMARY | 2024-07-13 09:08 | XMS_ITS | Encounter Summary ---
Author Organization [facility] Address [address] [place] [address] 7 [place] [address] Care Team Providers Care Global Marketing Intern Name Role Phone Name, Rashad JAFFE Primary Care Provider Reason for Visit * Reason Comments Med Refill Encounter Details Date Type Department Care Team (Late Contact Info) Description 08/22/2022 Refill [facility] [address] [place] [phone] Name, MD Rashad [address] [place] [id number] Social History Tobacco Use Types Packs/Day Years Used Date Smoking Tobacco: Never Passive Smoke Exposure: Never Smokeless Tobacco: Never Alcohol Use Standard Drinks/Week Comments Never 0 (1 standard drink = 0.6 oz pur e alcohol) Comments Unknown Sex and Gender Information Value Date Recorded Sex Assigned at Female 03/18/2022 10:14 AM EDT Legal Sex Female 10:14 AM EDT Gender Identity Female 03/18/2022 10:14 AM EDT Sexual Orientation Straight 03/18/2022 10 :14 AM EDT COVID-19 Exposure Response Date Recorded In the last 10 days, have yo u been in contact with someone who was confirmed or suspected to have Coronavirus/COVID-19? No / Unsure 08/15/2022 3:11 PM EDT documented as of this encounter Plan of Treatment Upcoming Encounters Date Type Department Care Team (Late Contact Info) Description 07/26/2024 2:00 PM EDT Clinical Support [facility] [address] [place] [phone] 09/13/2024 2:00 PM EDT Office Visit [facility] [address] [place] [address] April Rodriguez, OD [address] [place] [address] documented as of this encounter Goals Goal Patient Goal Type Associated Problems Recent Progress Patient-Stated? Author Blood Pressure < 140/90 Blood Pressure 154/96(2024 1:45 PM EST) No Tiana [place], PharmKareen Note: Achieve goal BP of < 140/90 [...] Diagnoses Not on filedocumented in this encounter Care Teams Global Marketing Intern Relationship Specialty Start Date End Date Name, MD Rashad [address] [place] [address] PCP - General Family Medicine 01/30/18 documented as of this encounter
[2024-07-13 12:22] LABS: Creatinine Urine 205.59 mg/dL; Microalbum/Creatinine Ratio Ur 25.2 ug/mg cr (<30)
[2024-07-13 12:28] LABS: Alanine Aminotransferase 35 U/L (0-31); Albumin Level 3.7 g/dL (3.5-5.0); Alkaline Phosphatase 132 U/L (39-117); Anion Gap 11 (12-20); Aspartate Amino Transferase 39 U/L (5-31); Bilirubin Total 0.7 mg/dL (0.0-1.0); Blood Urea Nitrogen 8 mg/dL (9-16); Calcium 9.2 mg/dL (8.4-10.2); Carbon Dioxide 27 mmol/L (22-29); Chloride 105 mmol/L (96-108); Cholesterol 203 mg/dL (<200); Estimated Glomerular Filt Rate > 60; Glucose Random 279 mg/dL (60-115); HDL Cholesterol 47 mg/dL (>40); LDL Cholesterol Calculated 126 mg/dL (<100); Potassium 3.9 mmol/L (3.3-5.1); Sodium 139 mmol/L (135-145); Triglycerides 152 mg/dL (<150)
== END 2024-07-13 08:38 | disposition home or self-care (01) ==
LOC: HO.HHCL 08:37
PROVIDERS: Visit Provider Internal Medicine Geriatric Medicine
DX: E11.65 Type 2 diabetes mellitus with hyperglycemia (principal); I10 Essential (primary) hypertension
CPT/HCPCS: 36415; 80053; 80061; 82043; 82570